=== PATIENT | female | born 1960 | race Caucasian/White ===

== ENCOUNTER 2023-08-29 10:23 | Outpatient (OUT) | payer OTHER, SELFPAY ==
--- NOTE | 2023-08-29 10:26 | MM_ITS ---
Patient Name BEV LOWERY MR# Age Sex Date Time [id number] F 08/29/2023 10:30 At the Request Of DR Myrtle Calloway M.D. RADIOLOGY REPORT PROCEDURE: MM TOMOSYNTHESIS SCREENING BI COMPARISON: MG MAMM SCREEN 3D CHEN CAD, 08/23/2022. MG MAMM SCREEN 3D CHEN CAD, 07/20/2021. MG MAMM SCREEN CHEN W CAD, 05/26/2020. MG MAMM CHEN SCRN W CAD DIG, 10/07/2013. INDICATIONS: Screening Calculator Name NCI Breast Cancer Risk Assessment Tool 5 Year Breast Cancer Risk 1.00% Lifetime Breast Cancer Risk 4.70% Personal Breast Cancer No Personal Ovarian Cancer No Treatments None Family Cancers Mother with lung cancer at age 48. LOCATION: [facility] BREAST COMPOSITION: Scattered areas fibroglandular density. FINDINGS: DIAGNOSTIC CATEGORY 1--NEGATIVE. RIGHT BREAST: No significant suspicious finding. No significant change has occurred. LEFT BREAST: No significant suspicious finding. No significant change has occurred. RECOMMENDATIONS: ROUTINE MAMMOGRAM AND CLINICAL EVALUATION IN 12 MONTHS. PLEASE NOTE: A NORMAL MAMMOGRAM DOES NOT EXCLUDE THE POSSIBILITY OF BREAST CANCER. A CLINICALLY SUSPICIOUS PALPABLE LUMP SHOULD BE BIOPSIED. Dictated by: Tremaine Wick M.D. on 08/29/2023 at 13:14 Approved by: Tremaine Wick M.D. on 08/29/2023 at 13:20
--- OUTSIDE RECORDS SUMMARY | 2023-10-09 13:41 | XMS_ITS | CCD ---
Author Name Unknown Address [facility] [address] [place] [address] Organization [facility] Care Team Providers Care Electronic Operator Name Role Phone EDU, DR EPEWEE Kirk Primary Care Unavailable WEST, DR ALLA Taylor Consulting Unavailable SORENSEN, DR PEEWEE Kirk Admitting Unavailable SORENSEN, DR PEEWEE Kirk Attending Unavailable SORENSEN, DR PEEWEE Kirk Consulting Unavailable SORENSEN, DR PEEWEE Kirk Primary Care Unavailable SORENSEN, DR PEEWEE Kirk Admitting Unavailable SORENSEN, DR PEEWEE Kirk Attending Unavailable SORENSEN, DR PEEWEE Kirk Consulting Unavailable SORENSEN, DR PEEWEE Kirk Primary Care Unavailable SORENSEN, DR PEEWEE Kirk Admitting Unavailable SORENSEN, DR PEEWEE Kirk Attending Unavailable SORENSEN, DR PEEWEE Kirk Consulting Unavailable SORENSEN, DR PEEWEE Kirk Primary Care Unavailable CHRISTINA DAILY Admitting Unavailable CHRISTINA DAILY Attending Unavailable CHRISTINA DAILY Consulting Unavailable Problems Problem Classification Problem Date Documented Da te Episodic/Chronic Other and unspecified benign neoplasm (4 sources) Benign neoplasm of pituitary gland; Translations: [BENIGN NEOPLASM OF PITUITARY GLAND] Onset: 08-10-2022 Episodic Other screening for suspected conditions (not mental disorders or infectious disease) (8 sources) Encounter for screening mammogram for malignant neoplasm of breast; Translations: [Encounter for screening for diabetes mellitus] Onset: 01-11-2022 Episodic Residual codes; unclassified (1 source) Family history of malignant neoplasm of trachea, bronchus and lung; Translations: [FAM HX MALIG NEOPLSM TRACH BRON LNG] Onset: 08-28-2022 Episodic Thyroid disorders (2 sources) Hypothyroidism, unspecified; Translations: [Autoimmune thyroiditis] Onset: 06-09-2022 Chronic Results Test Name Value Interpretation Reference Range Facil ity MG MAMM SCREEN 3D CHEN CADon 08-23-2022 MG MAMM SCREEN 3D CHEN CAD Patient: BEV LOWERY. Exam Date: 08/23/2022 : 1960 Gender:F Ordering : DR PEEWEE SORENSEN M.D. Admission #: [id number] Family : Order #: [id number] CLICK HERE TO VIEW EXAM RADIOLOGY REPORT PROCEDURE: MAMMOGRAM SCREENING 3D BILATERAL CAD COMPARISON: MG MAMM SCREEN CHEN W CAD, 05/26/2020. MG MAMM SCREEN 3D CHEN CAD, 07/20/2021. INDICATIONS: Screening mammography Calculator Name NCI Breast Cancer Risk Assessment Tool 5 Year Breast Cancer Risk 0.90% Lifetime Breast Cancer Risk 4.90% Personal Breast Cancer No Personal Ovarian Cancer No Treatments None Family Cancers Mother with lung cancer at age 48. LOCATION: [facility] BREAST COMPOSITION: Scattered areas fibroglandular density. FINDINGS: DIAGNOSTIC CATEGORY 1--NEGATIVE. NO CHANGE FROM COMPARISON ASSESSMENT. Scattered benign-appearing nodules are present. Scattered benign-appearing calcifications are present. Scattered benign-appearing lymph nodes are present. RIGHT BREAST: No significant suspicious finding. LEFT BREAST: No significant suspicious finding. RECOMMENDATIONS: ROUTINE MAMMOGRAM AND CLINICAL EVALUATION IN 12 MONTHS. PLEASE NOTE: A NORMAL MAMMOGRAM DOES NOT EXCLUDE THE POSSIBILITY OF BREAST CANCER. A CLINICALLY SUSPICIOUS PALPABLE LUMP SHOULD BE BIOPSIED. Dictated by: Alla Kearns MD on 08/23/2022 at 13:07 Approved by: Alla Kearns MD on 08/23/2022 at 13:09 Normal [facility] l OIOLQLF-ESAD-UMJYQF-FACTOR 1 on 08-12-2022 Insulin-Like Growth Factor I 173 ng/mL Normal 60-207 [facility] Comment on above: Performed By: #### I NSGF1 #### [facility] [address] [address] [address] Mago Espinosa ACTH, PLASMAon 08-11-2022 ACTH, Plasma 60.8 pg/mL Normal 7.2-63.3 [facility] Comment on above: Result Comment: ACTH reference interval for samples collected between 7 and 10 AM. Performed By: #### A CTHP #### [facility] [address] [address] [address] Mago Espinosa CORTISOLon 08-11-2022 Cortisol 21.2 ug/dL Normal [facility] Comment on above: Result Comment: Keegan isol AM 6.2 - 19.4 Cortisol PM 2.3 - 11.9 Performed By: #### C ORTISO #### [facility] [address] [address] [address] Mago Espinosa PROLACTINon 08-11-2022 Prolactin 21.3 ng/mL Normal 4.8-23.3 [facility] Comment on above: Performed By: #### P ROLAC #### [facility] [address] [address] [address] Mago Espinosa PROF CHEM 8 (BAS METB)on Anion gap [Moles/Vol] 13.3 mmol/L Normal [facility] Comment on above: Performed By: #### B MP #### [facility] [address] [address] [address] Mago Espinosa Calcium [Mass/Vol] 8.9 mg/dL Normal 8.5-10.1 [facility] Comment on above: Performed By: #### B MP #### [facility] [address] [address] [address] Mago Espinosa Chloride [Moles/Vol] 104 mmol/L Normal 98-107 [facility] Comment on above: Performed By: #### B MP #### [facility] [address] [address] [address] Mago Espinosa CO2 [Moles/Vol] 27.5 mmol/L Normal 21.0-32.0 [facility] Comment on above: Performed By: #### B MP #### [facility] [address] [address] [address] Mago Espinosa Creatinine [Mass/Vol] 0.92 mg/dL Normal 0.55-1.02 [facility] Comment on above: Performed By: #### B MP #### [facility] [address] [address] [address] Mago Espinosa EGFR-AF EAST [place] >60 Normal >=60 [facility] Comment on above: Performed By: #### B MP #### [facility] [address] [address] [address] Mago Espinosa EGFR-NON AF [place] >60 Normal >=60 [facility] Comment on above: Performed By: #### B MP #### [facility] [address] [address] [address] Mago Espinosa Glucose [Mass/Vol] 107 mg/dL Critically high 74-106 T [facility] Comment on above: Performed By: #### B MP #### [facility] [address] [address] [address] Mago Espinoas Potassium [Moles/Vol] 3.8 mmol/L Normal 3.5-5.1 [facility] Comment on above: Performed By: #### B MP #### [facility] [address] [address] [address] Mago Espinosa Sodium [Moles/Vol] 141 mmol/L Normal 136-145 [facility] Comment on above: Performed By: #### B MP #### [facility] [address] [address] [address] Mago Espinosa Urea nitrogen [Mass/Vol] 9.0 mg/dL Normal 7.0-18.0 [facility] Comment on above: Performed By: #### B MP #### [facility] [address] [address] [address] Mago Espinosa Urea nitrogen/Creatinine [Mass ratio] 9.8 mg/mg Normal [facility] Comment on above: Performed By: #### B MP #### [facility] [address] [address] [address] Mago Espinosa FREE T4on 06-08-2022 Free T4 [Mass/Vol] 1.23 ng/dL Normal 0.76-1.46 [facility] Comment on above: Performed By: #### F T4 #### [facility] [address] [address] [address] Mago Espinosa LIPID PROFILEon 06-08-2022 CHOL-HDL RATIO NORM SEE BELOW Normal [facility] Comment on above: Result Comment: 3.3 - 4.4 LOW RISK 4.4 - 7.1 AVERAGE RISK 7.1 - 11.0 MODERATE RISK >11.0 HIGH RISK Performed By: #### C MP, LIPID, TSH #### [facility] [address] [address] [address] Mago Espinosa Cholesterol [Mass/Vol] 187 mg/dL Normal <=200 Th [facility] Comment on above: Performed By: #### C MP, LIPID, TSH #### [facility] [address] [address] [address] Mago Espinosa Cholesterol in HDL [Mass/Vol] 43 mg/dL Normal 40-60 [facility] Comment on above: Performed By: #### C MP, LIPID, TSH #### [facility] [address] [address] [address] Mago Espinosa Cholesterol in LDL [Mass/Vol] 112.4 mg/dL Normal [facility] Comment on above: Performed By: #### C MP, LIPID, TSH #### [facility] [address] [address] [address] Mago Espinosa Cholesterol.total/Cholestero l in HDL [Mass ratio] 4.3 {ratio} Normal [facility] Comment on above: Performed By: #### C MP, LIPID, TSH #### [facility] [address] [address] [address] Mago Espinosa HDL NORMAL > or = 60 mg/dl - LO W CARDIOVASCULAR RISK <40 mg/dl - HIGH CARDIOVASCULAR RISK Normal [facility] Comment on above: Performed By: #### C MP, LIPID, TSH #### [facility] [address] [address] [address] Mago Espinosa LDL CALC NORMAL SEE BELOW Normal [facility] Comment on above: Result Comment: <100 mg/dl OPTIMAL 100 - 129 mg/dl NEAR OR ABOVE OPTIMAL 130 - 159 mg/dl BORDERLINE HIGH 160 - 189 mg/dl HIGH >190 mg/dl VERY HIGH Performed By: #### C MP, LIPID, TSH #### [facility] [address] [address] [address] Mago Espinosa Triglyceride [Mass/Vol] 158 mg/dL Critically high <=150 [facility] Comment on above: Performed By: #### C MP, LIPID, TSH #### [facility] [address] [address] [address] Mago Espinosa VLDL CALC 31.6 mg/dL Normal [facility] Comment on above: Performed By: #### C MP, LIPID, TSH #### [facility] [address] [address] [address] Mago Espinosa PROF 14(COMP METB)on 022 Albumin [Mass/Vol] 3.7 g/dL Normal 3.4-5.0 [facility] Comment on above: Performed By: #### C MP, LIPID, TSH #### [facility] [address] [address] [address] Mago Espinosa Albumin/Globulin [Mass ratio] 1.1 {ratio} Normal [facility] Comment on above: Performed By: #### C MP, LIPID, TSH #### [facility] [address] [address] [address] Mago Espinosa ALP [Catalytic activity/Vol] 58 U/L Normal 46-116 [facility] Comment on above: Performed By: #### C MP, LIPID, TSH #### [facility] [address] [address] [address] Mago Espinosa ALT [Catalytic activity/Vol] 22 U/L Normal 14-59 [facility] Comment on above: Performed By: #### C MP, LIPID, TSH #### [facility] [address] [address] [address] Mago Espinosa Anion gap [Moles/Vol] 14.2 mmol/L Normal [facility] Comment on above: Performed By: #### C MP, LIPID, TSH #### [facility] [address] [address] [address] Mago Espinosa AST [Catalytic activity/Vol] 11 U/L Critically low 15- 37 [facility] Comment on above: Performed By: #### C MP, LIPID, TSH #### [facility] [address] [place] [address] Dr. Mago Espinosa Bilirubin [Mass/Vol] 0.5 mg/dL Normal 0.2-1.0 [facility] Comment on above: Performed By: #### C MP, LIPID, TSH #### [facility] [address] [place] [address] Dr. Mago Espinosa Calcium [Mass/Vol] 8.8 mg/dL Normal 8.5-10.1 [facility] Comment on above: Performed By: #### C MP, LIPID, TSH #### [facility] [address] [address] [address] Mago Espinosa Chloride [Moles/Vol] 104 mmol/L Normal 98-107 [facility] Comment on above: Performed By: #### C MP, LIPID, TSH #### [facility] [address] [address] [address] Mago Espinosa CO2 [Moles/Vol] 25.3 mmol/L Normal 21.0-32.0 [facility] Comment on above: Performed By: #### C MP, LIPID, TSH #### [facility] [address] [address] [address] Mago Espinosa Creatinine [Mass/Vol] 1.01 mg/dL Normal 0.55-1.02 [facility] Comment on above: Performed By: #### C MP, LIPID, TSH #### [facility] [address] [address] [address] Mago Espinosa EGFR-AF [place] >60 Normal >=60 [facility] Comment on above: Performed By: #### C MP, LIPID, TSH #### [facility] [address] [address] [address] Mago Espinosa EGFR-NON AF [place] 56 mL/min/1.73m2 Critically low >=60 [facility] Comment on above: Performed By: #### C MP, LIPID, TSH #### [facility] [address] [address] [address] Mago Espinosa Globulin (S) [Mass/Vol] 3.5 g/dL Normal [facility] Comment on above: Performed By: #### C MP, LIPID, TSH #### [facility] [address] [address] [address] Mago Espinosa Glucose [Mass/Vol] 104 mg/dL Normal 74-106 [facility] Comment on above: Performed By: #### C MP, LIPID, TSH #### [facility] [address] [address] [address] Mago Espinosa Potassium [Moles/Vol] 3.5 mmol/L Normal 3.5-5.1 [facility] Comment on above: Performed By: #### C MP, LIPID, TSH #### [facility] [address] [address] [address] Mago Espinosa Protein [Mass/Vol] 7.2 g/dL Normal 6.4-8.2 [facility] Comment on above: Performed By: #### C MP, LIPID, TSH #### [facility] [address] [address] [address] Mago Espinosa Sodium [Moles/Vol] 140 mmol/L Normal 136-145 [facility] Comment on above: Performed By: #### C MP, LIPID, TSH #### [facility] [address] [address] [address] Mago Espinosa Urea nitrogen [Mass/Vol] 11.0 mg/dL Normal 7.0-18.0 [facility] Comment on above: Performed By: #### C MP, LIPID, TSH #### [facility] [address] [address] [address] Mago Espinosa Urea nitrogen/Creatinine [Mass ratio] 10.9 mg/mg Normal [facility] Comment on above: Performed By: #### C MP, LIPID, TSH #### [facility] [address] [address] [address] Mago Espinosa TSHon 06-08-2022 TSH 7.183 uIU/mL Critically high 0.358-3.740 [facility] Comment on above: Performed By: #### C MP, LIPID, TSH ####[facility] [id number] [address]Dr[address] Mago Espinosa PAP ACOG PANEL 2: 30 to 65on 01-17-2022 . . Normal [facility] Comment on above: Result Comment: Perf ormed at: WB Performed By: #### [id number] #### [facility] [address] [address] [address] Mago Espinosa Age Gdln ACOG Testing 30-65 Normal [facility] Comment on above: Performed By: #### [id number] #### [facility] [address] [place] [address] Dr. Mago Espinosa DIAGNOSIS: Comment Normal [facility] Comment on above: Result Comment: NEGA TIVE FOR INTRAEPITHELIAL LESION OR MALIGNANCY. Performed at: WB Performed By: #### 4 [id number] #### [facility] [address] [address] [address] Mago Espinosa HPV Aptima Negative Normal Negative [facility] Comment on above: Result Comment: This nucleic acid amplification test detects fourteen high-risk HPV types (16,18,31,33,35,39,45,51,52,56,58,59,66,68) without differentiation. Performed at: =G Performed By: #### [id number] #### [facility] [address] [place] [address] Dr. Mago Espinosa Methodology: Comment Normal [facility] Comment on above: Result Comment: This liquid based ThinPrep(R) pap test was screened with the use of an image guided system. Performed at: WB Performed By: #### 4 [id number] #### [facility] [address] [place] [address] Dr. Mago Espinosa Note: Comment Normal [facility] Comment on above: Result Comment: The Pap smear is a screening test designed to aid in the detection of premalignant and malignant conditions of the uterine cervix. It is not a diagnostic procedure and should not be used as the sole means of detecting cervical cancer. Both false-positive and false-negative reports do occur. . Performed at: WB Performed By: #### 4 [id number] #### [facility] [address] [address] [address] Mago Espinosa Performed by: Comment Normal [facility] Comment on above: Result Comment: Tiana Neal, [employer] Draftsperson Performed at: WB Performed By: #### 4 [id number] #### [facility] [address] [address] [address] Mago Espinosa Specimen adequacy: Comment Normal [facility] Comment on above: Result Comment: Sati sfactory for evaluation. No endocervical component is identified. Performed at: WB Performed By: #### 4 [id number] #### [facility] [address] [place] [address] Dr. Mago Espinosa Postoperative Documentson Postoperative Documents [id number]:127 Normal [facility] Coding Summary.on 12-02-2020 Coding Summary. CODING DATE: 021 FINAL [facility] STATUS: Home (Routine DC) PAYOR: [employer] APC DESCRIPTION 5572 Level 2 Imaging with Contrast ADMIT DX: REASON FOR VISIT DX: H93.11 Tinnitus, right ear FINAL DX: PRINCIPAL: H93.11 Tinnitus, right ear SECONDARY: PYMT PROC APC STAT DESCRIPTION DOCTOR NAME DATE Anesthesia for Dylan Thao Jr., DO 11/30/2020 non-invasive imaging or radiation therapy NOTE: The code number assigned matches the documented diagnosis and / or procedure in the patient's chart. However, the narrative phrase printed from the coding software may appear abbreviated, or result in slightly different terminology. Coded By: Cristina Pennington Date Saved: 12/02/2020 12:11 pm Normal [facility] Consent for Anesthesiaon Consent for Anesthesia [id number]:127 [facility] Discharge Instructionson Discharge Instructions [id number]:127 [facility] Preoperative Documentson Preoperative Documents [id number]:127 [facility] Preoperative Documents [id number]:127 [facility] Consent for Treatmenton Consent for Treatment [id number]:127 Normal [facility] MRI Brain w/ + w/o Contrasto n 11-30-2020 MRI Brain w/ + w/o Contrast Exam Date/Time: 11/30/2020 10:46 EST Reason for Exam: Tinnitus, right ear Report IMPRESSION: NEGATIVE MRI OF THE BRAIN. 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 CLINICAL HISTORY: Tinnitus, right ear COMMENT: Unenhanced and intravenous contrast enhanced images were obtained. The ventricles and basal cisterns and cortical sulci appear normal. There is no mass effect nor midline shift. No abnormal signal intensity within the brain is noted. No abnormal contrast enhancement within the brain is noted. There is no evidence of recent infarction on the diffusion weighted images. No intra-axial mass lesion is evident. Within the pituitary gland on the left, there is an ovoid mass, that measures 5 x 6 x 7 mm. This mass is of intermediate signal intensity on unenhanced T1-weighted images and predominantly of increased signal intensity on T2-weighted and FLAIR images. On the postcontrast enhanced images, this mass does not enhance to the same degree as normal pituitary tissue, and is lower in signal intensity. This mass protrudes superiorly into the suprasellar cistern to the left of midline. This mass does not impinge on the pituitary infundibulum or the optic chiasm. The remainder of the pituitary gland is normal in size and normal in appearance. The internal auditory canals and the cochlear and vestibular canals are symmetric. No abnormal signal intensity, no abnormal contrast enhancement, nor mass lesion is seen involving the internal auditory canals or the cerebellopontine angle cisterns. There is minimal increased signal intensity within the right mastoid centrally, otherwise the mastoids are unremarkable. There is mild mucosal thickening of the ethmoid sinuses. FINAL REPORT Dictated: 11/30/2020 12:17 pm Peter Dumont M.D. Signed (Electronic Signature): 11/30/2020 12:17 pm Signed by: Peter Dumont M.D. Transcribed by: CAYETANO Technologist: RAYA Technical Comments MultiHance Contrast amount in ml's: 13 Normal [facility] Main OR PACU I [facility] Main OR PACU I Record PACU Phase I Docum ent Type FT Summary Primary Physician: NONE, XXXX Finalized Date/Time: 11/30/20 11:57:31 Pt. Name: BEV LOWERY Richy Rand/Sex: 1960 Female Med Rec #: [id number] Physician: Bhakti Dougherty MD Financial #: [id number] Pt. Type: A Room/Bed: [address] [address] Admit/Disch: 11/30/20 07:14:36 - Institution: Case Times PACU I FT Pre-Care Text: Identifies barriers to communication and implements measures to provide psychological support Develops individualized plan of care, and ensures continuity of care Maintains patient's dignity and privacy, and maintains patient confidentiality Identifies and reports philosophical, cultural, and spiritual beliefs and values Identifies individual values and wishes concerning care Implements aseptic technique, and administers prescribed antibiotic therapy and immunizing agents as ordered Evaluates postoperative tissue perfusion Implements thermoregulation measures, and monitors body temperature Evaluates postoperative respiratory status Evaluates postoperative cardiac status Evaluates postoperative neurological status Assesses pain control, collaborated in initiating patient-controlled analgesia and implements alternative methods of pain control Verifies allergies, administers prescribed medications and solutions, evaluates response to medications Entry 1 In PACU I 11/30/20 10:44:00 Discharge from PACU 11/30/20 11:14:00 I Outcomes Met? Yes Last Modified By: Luis LEMONS, Paz Montague 11/30/20 11:57:18 Post-Care Text: The patient demonstrates knowledge of the expected response to the operative or invasive procedure The patient's care is consistent with the individualized perioperative plan of care The patient's right to privacy is maintained The patient's value system, lifestyle, ethnicity, and culture are considered, respected, and incorporated into the perioperative plan of care The patient participates in decisions affecting his or her perioperative plan of care The patient is free from signs and symptoms of infection The patient has wound/tissue perfusion consistent with or improved from baseline levels established preoperatively The patient is at or returning to normothermia at the conclusion of the immediate postoperative period The patient's respiratory function is consistent with or improved from baseline levels established preoperatively The patient's cardiovascular status is consistent with or improved from baseline levels established preoperatively The patient's cardiovascular status is consistent with or improved from baseline levels established preoperatively The patient demonstrates and/or reports adequate pain control throughout the perioperative period The patient received appropriate medication(s), safely administered during the perioperative period Acuity Level PACU I FT Entry 1 Start Time 11/30/20 10:44:00 Stop Time 11/30/20 11:14:00 Acuity Level Acuity Level I Last Modified By: Paz Smith RN 11/30/20 11:57:26 Finalized By: Paz Smith RN Document Signatures Signed By: Paz Smith RN 11/30/20 11:57 Normal [facility] Main OR PACU II [facility] Main OR PACU II Record PACU Phase II Document Type FT Summary Primary Physician: NORMA, XXXX Finalized Date/Time: 11/30/20 12:55:46 Pt. Name: BEVERLEYBEV/Sex: 1960 Female Med Rec #: [id number] Physician: Bhakti Dougherty MD Financial #: [id number] Pt. Type: A Room/Bed: [facility] Admit/Disch: 11/30/20 07:14:36 - Institution: Case Times PACU II FT Pre-Care Text: Identifies barriers to communication and implements measures to provide psychological support and determines knowledge level Develops individualized plan of care, and ensures continuity of care Maintains patient's dignity and privacy, and maintains patient confidentiality Identifies and reports philosophical, cultural, and spiritual beliefs and values Identifies individual values and wishes concerning care administers prescribed antibiotic therapy and immunizing agents as ordered, Evaluates postoperative tissue perfusion Implements thermoregulation measures, and monitors body temperature Evaluates postoperative respiratory status Evaluates postoperative cardiac status Evaluates postoperative neurological status Assesses pain control, collaborated in initiating patient-controlled analgesia and implements alternative methods of pain control Verifies allergies, administers prescribed medications and solutions, evaluates response to medications Entry 1 In PACU II 11/30/20 11:15:00 Discharge from PACU 11/30/20 12:15:00 II Outcomes Met? Yes Last Modified By: Kaela Kraus RN 11/30/20 12:55:44 Post-Care Text: The patient demonstrates knowledge of the expected response to the operative or invasive procedure The patient's care is consistent with the individualized perioperative plan of care The patient's right to privacy is maintained The patient's value system, lifestyle, ethnicity, and culture are considered, respected, and incorporated into the perioperative plan of care The patient participates in decisions affecting his or her perioperative plan of care. The patient is free from signs and symptoms of infection The patient has wound/tissue perfusion consistent with or improved from baseline levels established preoperatively The patient is at or returning to normothermia at the conclusion of the immediate postoperative period The patient's respiratory function is consistent with or improved from baseline levels established preoperatively The patient's cardiovascular status is consistent with or improved from baseline levels established preoperatively The patient's neurological status is consistent with or improved from baseline levels established preoperatively The patient demonstrates and/or reports adequate pain control throughout the perioperative period The patient received appropriate medication(s), safely administered during the perioperative period Finalized By: Kaela Kraus RN Document Signatures Signed By: Kaela Kraus RN 11/30/20 12:55 Normal [facility] Monitor Recordon 11-30-2020 Monitor Record [id number]:127 Normal [facility] Progress Note-Nurseon 2020 Progress Note-Nurse 0938 Patient transpo rted via cart all rails up to MRI by VESTA Crowe and MILLA Oneil. 0940 Arrival to MRI area. VESTA Crowe 0942 Patient ambulated to MRI room with standby assist x 2. Patient positioned self in supine position. Bilateral arms resting at sides; knee/leg cushion placed under bilateral knee and lower leg area. VESTA Crowe 0943 HR 67 SpO2 100% on room air BP 101/71 RR 16. VESTA Crowe 0948 Start of MRI. VESTA Crowe 0952 HR 68 SpO2 99% -4L via NC RR 18. P BP 92/64 Patient tolerating MRI well with no signs of distress. Will continue to monitor. VESTA Crowe 1000 BP 91/67 HR 69 SpO2 100%- 4L via NC. RR 20 Patient tolerating well - will continue to monitor. VESTA Crowe 1010 BP 99/68 HR 67 SpO2 100% - 4L via NC RR 18 RR 18- patient tolerating well - will continue to monitor. VESTA Crowe 1020 BP 90/68 HR 68 SpO2 100% - 4L via NC RR 16 - patient tolerating well - no sign of distress - will continue to monitor. VESTA Crowe 1030 BP 92/69 HR 73 SpO2 100% - 4L via NC RR 16. Patient tolerating well. Will continue to monitor. VESTA Crowe 1034 BP 102/67 HR 67 SpO2 100% - 4L via NC RR 19 - Patient tolerating well. Will continue to monitor. VESTA Crowe 1035 End of MRI. VESTA Crowe 1037 Patient ambulated to cart with standby assist x 2. VESTA Crowe 1040 Patient out of MRI and transported to PACU via cart all rails up on O2-4L via NC by VESTA Crowe and MILLA Oneil. Report given to PACU nurse. VESTA Crowe Normal [facility] Progress Note-Nurse Pt ambulatory to ASU to begin prep for MRI with sedation. Pt is alert and oriented 4, but anxious. Vital signs and assessment are WNL. IV start in right lower forearm 22G. Pt tolerated well. Pre and post MRI procedure explained to patient. Pt verbalizes understanding. Pt has no current needs, questions or concerns at this time. Normal [facility] Progress Note-Physicianon Progress Note-Physician Patient: BEV LOWERY Age: 60 years Sex: Female : 1960 Associated Diagnoses: None Author: Dylan Thao Jr., DO Postoperative Information Post Operative Note: Post Anesthesia Care Unit. Anesthetic utilized: Monitored anesthesia care. Health Status Allergies: Allergic Reactions (Selected) No Known Allergies Problem list: All Problems Ringing in right ear / SNOMED CT 372185343 / Confirmed Abnormal exam of right ear / SNOMED CT 8942651237 / Confirmed Hypothyroid / SNOMED CT 86819784 / Confirmed Resolved: Anxiety / SNOMED CT 84171011 Physical Examination Vital Signs 11/30/2020 11:17 EST Heart Rate Monitored 67 bpm Respiratory Rate 16 br/min Systolic Blood Pressure 127 mmHg Diastolic Blood Pressure 82 mmHg Blood Pressure Location Left arm Mean Arterial Pressure, Monitered 97 mmHg SpO2 100 % 11/30/2020 11:17 EST Temperature Oral 36.5 DegC 11/30/2020 10:44 EST Temperature Temporal Artery 36.8 DegC Heart Rate Monitored 69 bpm Respiratory Rate Monitored 22 br/min Systolic Blood Pressure 125 mmHg Diastolic Blood Pressure 72 mmHg Blood Pressure Location Left arm SpO2 100 % Pain assessment: Pain Assessment 11/30/2020 11:17 EST Preliminary Pain Scale 0 11/30/2020 11:17 EST Pain Symptoms Self Report No, able to self report . General: Alert and oriented, No acute distress, No nausea. Hydration adequate.. Respiratory: Adequate air exchange.. Neurologic: Normal sensory. Review / Management Condition: Stable. Assessment Anesthetic outcome No anesthetic complications noted. Plan Transfer/ Discharge: Condition stable. Normal [facility] Comment on above: Result Comment: Elec tronically Signed By: Dylan Thao Jr., DO\.br\Date and Time Signed: 11/30/20 12:05 EST Progress Note-Physician Patient: BEV LOWERY Age: 60 years Sex: Female : 1960 Associated Diagnoses: None Author: Ten Swanson CRNA Preoperative Information Note started preop and saved 924 Review of Systems Constitutional: Negative. Eye: Negative. Ear/Nose/Mouth/Throat: Negative except as documented in history of present illness. Cardiovascular: Negative. Genitourinary: Negative. Respiratory: Negative. Hematology/Lymphatics: Negative. Gastrointestinal: Negative. Endocrine: Negative. Immunologic: Negative. Integumentary: Negative. Musculoskeletal: Negative. Neurologic: Negative. Psychiatric: Anxiety. Health Status Allergies: Allergic Reactions (Selected) No Known Allergies, Allergies (1) Active Reaction No Known Allergies None Documented Current medications: (Selected) Inpatient Medications Ordered Lactated Ringers IV Ashley 1000 mL 1,000 mL: 1,000 mL, IV, 150 mL/hr, Routine, Start date 11/30/20 7:00:00 EST, 6.7 hour(s), Total volume (mL): 1,000, 67.5 kg, 1.76, m2 Documented Medications Documented Multi Vitamin+: 1 tab, Oral, Daily, chew, Prophylaxis Prempro 0.3 mg-1.5 mg oral tablet: 1 tab(s), Oral, Daily, Refill(s) 0, Menopause Synthroid 100 mcg Tab: 100 mcg = 1 tab(s), Oral, Daily, Refills(s) 0, Thyroid alprazolam 0.25 mg Tab: 0.25 mg = 1 tab(s), Oral, Daily, PRN as needed for anxiety, Refills(s) 0, Home Medications (4) Active alprazolam 0.25 mg Tab 0.25 mg = 1 tab(s), PRN, Oral, Daily Multi Vitamin+ 1 tab, Oral, Daily Prempro 0.3 mg-1.5 mg oral tablet 1 tab(s), Oral, Daily Synthroid 100 mcg Tab 100 mcg = 1 tab(s), Oral, Daily Problem list: All Problems Abnormal exam of right ear / SNOMED CT 7217118829 / Confirmed Hypothyroid / SNOMED CT 11801270 / Confirmed Ringing in right ear / SNOMED CT 579709169 / Confirmed, Active Problems (3) Abnormal exam of right ear Hypothyroid Ringing in right ear Histories Past Medical History: No active or resolved past medical history items have been selected or recorded. Family History: No family history items have been selected or recorded. Procedure history: Bilateral tubal ligation ([id number]). Social History Social & Psychosocial Habits Alcohol 11/24/2020 Use: Current Type: Beer Frequency: Daily Comment: 1 beer a day - 11/24/2020 07:38 - Billy LEMONS, Emma Substance Abuse 11/24/2020 Risk Assessment: Denies Substance Abuse Tobacco 11/24/2020 Risk Assessment: Denies Tobacco Use 11/24/2020 Tobacco Use: Former smoker, quit more Type: Cigarettes Stopped at age: 31 Years Previous treatment: None . Physical Examination Vital Signs 11/30/2020 7:34 EST Heart Rate Monitored 107 bpm HI Systolic Blood Pressure 123 mmHg Diastolic Blood Pressure 80 mmHg Blood Pressure Location Right arm Mean Arterial Pressure, Monitered 95 mmHg SpO2 98 % 11/30/2020 7:32 EST Temperature Oral 36.4 DegC Heart Rate Monitored 103 bpm HI Respiratory Rate 16 br/min Systolic Blood Pressure 132 mmHg Diastolic Blood Pressure 85 mmHg Blood Pressure Location Left arm Mean Arterial Pressure, Monitered 101 mmHg SpO2 99 % 11/30/2020 7:32 EST Apical Heart Rate 100 bpm Measurements from flowsheet : Measurements 11/30/2020 7:18 EST Height/Length Dosing 165.0 cm Weight Dosing 67.5 kg Pain assessment: Pain Assessment 11/30/2020 7:32 EST Preliminary Pain Scale 0 . Airway: Normal temporomandibular joint mobility. Mallampati classification: I (soft palate, fauces, uvula, pillars visible). Respiratory: Lungs are clear to auscultation. Cardiovascular: Regular rhythm. Review / Management Results review: No qualifying data available . Plan [place] [employer]esthesiologists (ASA) physical status classification: Class II. Anesthetic Preoperative Plan Anesthesia: Monitored anesthesia care. Anesthetic plan, risks, benefits, and alternatives discussed with the patient and/or family. Normal [facility] Comment on above: Result Comment: Elec tronically Signed By: Ten Swanson CRNA.br\Date and Time Signed: 11/30/20 11:43 EST Progress Note-Physician Patient: BEV LOWERY Age: 60 years Sex: Female : 1960 Associated Diagnoses: None Author: Dylan Thao Jr., DO Preoperative Information Time patient last ate or drank:=== (NPO since midnight) Anesthesia history: Patient History: No prior problems with anesthesia.. Re-eval prior to induction: Inital eval reviewed: No significant interval change, Surgical H&P documented and on chart. Surgical consent signed and on chart.. Anesthesia results Review of Systems Cardiovascular: Negative except as documented in history of present illness. Respiratory: Negative. Neurologic: Negative. Health Status Allergies: Allergic Reactions (Selected) No Known Allergies, Allergies (1) Active Reaction No Known Allergies None Documented Current medications: (Selected) Inpatient Medications Ordered Lactated Ringers IV Ashley 1000 mL 1,000 mL: 1,000 mL, IV, 150 mL/hr, Routine, Start date 11/30/20 7:00:00 EST, 6.7 hour(s), Total volume (mL): 1,000, 67.5 kg, 1.76, m2 Documented Medications Documented Multi Vitamin+: 1 tab, Oral, Daily, chew, Prophylaxis Prempro 0.3 mg-1.5 mg oral tablet: 1 tab(s), Oral, Daily, Refill(s) 0, Menopause Synthroid 100 mcg Tab: 100 mcg = 1 tab(s), Oral, Daily, Refills(s) 0, Thyroid alprazolam 0.25 mg Tab: 0.25 mg = 1 tab(s), Oral, Daily, PRN as needed for anxiety, Refills(s) 0 Histories Past Medical History: No active or resolved past medical history items have been selected or recorded. Family History: No family history items have been selected or recorded. Procedure history: Bilateral tubal ligation ([id number]). Social History Social & Psychosocial Habits Alcohol 11/24/2020 Use: Current Type: Beer Frequency: Daily Comment: 1 beer a day - 11/24/2020 07:38 - Billy LEMONS, Emma Substance Abuse 11/24/2020 Risk Assessment: Denies Substance Abuse Tobacco 11/24/2020 Risk Assessment: Denies Tobacco Use 11/24/2020 Tobacco Use: Former smoker, quit more Type: Cigarettes Stopped at age: 31 Years Previous treatment: None . Physical Examination Measurements from flowsheet : Measurements 11/30/2020 7:18 EST Height/Length Dosing 165.0 cm Weight Dosing 67.5 kg Airway: Mallampati classification: II (soft palate, fauces, uvula visible). Respiratory: Lungs are clear to auscultation. Cardiovascular: Regular rhythm. Review / Management Results review: Lab results 11/24/2020 8:12 EST SARS-CoV-2, DAVID Not Detected 11/24/2020 7:55 EST WBC 5.7 E9/L RBC 4.6 E12/L Hgb 14.5 gm/dL Hct 42.5 % MCV 92.3 fL MCH 31.5 pg MCHC 34.2 gm/dL RDW 12.5 % Platelet 230.0 E9/L MPV 8.3 fL Glucose Random 113 mg/dL BUN 10 mg/dL Creatinine 0.8 mg/dL eGFR >60 mL/min/1.73 m2 eGFR AA >60 mL/min/1.73 m2 Sodium Lvl 140 mmol/L Potassium Lvl 3.7 mmol/L Chloride 105 mmol/L CO2 27 mmol/L AGAP 12 mEq/L . Chest x-ray results * Final Report * Reason For Exam pre op POWERSCRIBE REPORT IMPRESSION: NO EVIDENCE OF ACTIVE CHEST DISEASE. CLINICAL HISTORY: pre op. COMMENT: The heart is normal in size. The mediastinum is unremarkable. The lungs appear clear. No infiltration nor pleural effusion is evident. Signature Line FINAL REPORT Dictated: 11/24/2020 10:47 am JuliaPeter mascorro M.D. Signed (Electronic Signature): 11/24/2020 10:47 am Signed by: Peter Dumont M.D. Transcribed by: CAYETANO Technologist: CHRISTINE RAD REPORT This document has an image Result type: XR Chest 2 Views Result date: November 24, 2020 8:08 EST Result status: Auth (Verified) Result title: XR Chest 2 Views Performed by: Peter Dumont M.D. on November 24, 2020 10:47 EST Verified by: Peter Dumont M.D. on November 24, 2020 10:47 EST Encounter info: [id number], [facility], Outpatient, 11/24/2020 - 11/24/2020 ECG interpretation: SINUS RHYTHM LOW QRS VOLTAGE IN PRECORDIAL LEADS SEPTAL MYOCARDIAL INFARCTION, OF INDETERMINATE AGE. Plan [place] [employer]esthesiologists (ASA) physical status classification: Class II. Anesthetic Preoperative Plan Anesthesia: General. . Anesthetic plan, risks, benefits, and alternatives discussed with the patient and/or family. Patient verbalized understanding. Adverse reactions, complications, and alternatives discujssed. Consent signed and on chart.. Normal [facility] Comment on above: Result Comment: Elec tronically Signed By: Dylan Thao Jr., DO\.br\Date and Time Signed: 11/30/20 09:46 EST RAD - MRI Screening Formon 0 11-30-2020 RAD - MRI Screening Form [id number]:127 Normal [facility] Coding Summary.on 11-25-2020 Coding Summary. CODING DATE: 021 FINAL [facility] STATUS: Home (Routine DC) PAYOR: Commercial Insurance APC DESCRIPTION 5521 Level 1 Imaging without Contrast ADMIT DX: REASON FOR VISIT DX: Z01.818 Encounter for other preprocedural examination FINAL DX: PRINCIPAL: Z01.818 Encounter for other preprocedural examination SECONDARY: Z20.828 Contact with and (suspected) exposure to other viral communicable diseases PYMT PROC APC STAT DESCRIPTION DOCTOR NAME DATE NOTE: The code number assigned matches the documented diagnosis and / or procedure in the patient's chart. However, the narrative phrase printed from the coding software may appear abbreviated, or result in slightly different terminology. Coded By: Doron BeckfordMissy Date Saved: 11/25/2020 10:30 am Normal [facility] Priority Order-Angelica 2020 Priority Order-STAT Comment Ulises demarco [facility] Comment on above: Result Comment: Elise ived Performed at: [email or web address] [address] [place], [place] [id number] MD Elaine Heath Performed By: #### 2 [id number], SARS-CoV-2, DAVID ####[facility] [address] [place] [address] SARS-CoV-2, NAAon 11-25-2020 SARS CORONAVIRUS 2 RNA:PRTHR:PT:RESPIRATORY:ORD:PROBE.AMP.TAR Not Detected Not D etected [facility] Comment on above: Result Comment: This nucleic acid amplification test was developed and its performance characteristics determined by [facility]. Nucleic acid amplification tests include RT-PCR and TMA. This test has not been FDA cleared or approved. This test has been authorized by FDA under an Emergency Use Authorization (EUA). This test is only authorized for the duration of time the declaration that circumstances exist justifying the authorization of the emergency use of in vitro diagnostic tests for detection of SARS-CoV-2 virus and/or diagnosis of COVID-19 infection under section 564(b)(1) of the Act, 21 U.S.C. 360bbb-3(b) (1), unless the authorization is terminated or revoked sooner. When diagnostic testing is negative, the possibility of a false negative result should be considered in the context of a patient's recent exposures and the presence of clinical signs and symptoms consistent with COVID-19. An individual without symptoms of COVID-19 and who is not shedding SARS-CoV-2 virus would expect to have a negative (not detected) result in this assay. Performed at: [email or web address] [address] [place], [place] [id number] MD Elaine Heath Performed By: #### 2 [id number], SARS-CoV-2, DAVID ####[facility] [address] [place] [address] BUNon 11-24-2020 Urea nitrogen [Mass/Vol] 10 mg/dL Normal 5-21 [facility] Comment on above: Performed By: #### 1 7121385, 0237003, 5980176, 9307040, 7523027, 9220372 ####[facility] [address] [place] [address] CBC w/Indiceson 11-24-2020 Erythrocyte distribution wid th (RBC) [Ratio] 12.5 % Normal 10.9-14.2 [facility] Comment on above: Performed By: #### 1 9364800, 7802390, 0478397, 3419201, 2719278, 9561393 ####[facility] [address] [place] [address] Hematocrit (Bld) [Volume fraction] 42.5 % Normal 34.0-46.0 [facility] Comment on above: Performed By: #### 1 5902174, 7102690, 4851163, 8352537, 8973441, 6495929 ####[facility] [address] [place] [address] Hemoglobin (Bld) [Mass/Vol] 14.5 g/dL Normal 12.0-16. 0 [facility] Comment on above: Performed By: #### 1 1664190, 1948229, 3925359, 4340119, 5552289, 3258742 ####[facility] [address] [place] [address] MCH (RBC) [Entitic mass] 31.5 pg Normal 27.0-34.0 [facility] Comment on above: Performed By: #### 1 4595004, 7666366, 9714255, 9791289, 8132335, 8091429 ####[facility] [address] [place] [address] MCHC (RBC) [Mass/Vol] 34.2 g/dL Normal 31.4-36.0 [facility] Comment on above: Performed By: #### 1 5779905, 5704915, 2622561, 5190327, 8102615, 4826638 ####[address] [place] [address] MCV (RBC) [Entitic vol] 92.3 fL Normal 80.0-100.0 F [facility] Comment on above: Performed By: #### 1 9682000, 3668048, 3203323, 1244114, 2230948, 9007906 ####[address] [place] [address] Platelet mean volume (Bld) [Entitic vol] 8.3 fL Normal 6.4-10.8 [facility] Comment on above: Performed By: #### 1 7315209, 7113931, 5474214, 2583037, 4050825, 4408057 ####[address] [address] Platelets (Bld) [#/Vol] 230.0 E9/L Normal 150.0-500.0 [facility] Comment on above: Performed By: #### 1 8243999, 5092195, 2858891, 4941306, 5571965, 4063641 ####[address] [address] RBC (Bld) [#/Vol] 4.6 E12/L Normal 4.3-5.9 [facility] Comment on above: Performed By: #### 1 3021211, 8676595, 9390414, 2836574, 4940969, 0968050 ####[address] [address] WBC corrected for nucl RBC A uto (Bld) [#/Vol] 5.7 E9/L Normal 4.0-11.0 [facility] Comment on above: Performed By: #### 1 7761812, 4575273, 7170798, 2451434, 5142462, 0081997 ####[address] [place] [address] Consent for Treatmenton Consent for Treatment [id number]:127 Normal [facility] Creatinineon 11-24-2020 Creatinine [Mass/Vol] 0.8 mg/dL Normal 0.5-1.3 [facility] Comment on above: Performed By: #### 1 2145920, 5836164, 7592771, 7943374, 9418591, 2504289 ####[facility] [address] [place] [address] Glucoseon 11-24-2020 Glucose [Mass/Vol] 113 mg/dL Normal 55-199 [facility] Comment on above: Performed By: #### 1 6823794, 4784920, 5759408, 8600585, 8600302, 1358662 ####[facility] [address] [place] [address] Lyteson 11-24-2020 Anion gap [Moles/Vol] 12 mmol/L Normal 6-16 [facility] Comment on above: Performed By: #### 1 2985918, 2038879, 0959500, 7780458, 7532150, 8276627 ####[facility] [address] [address] Chloride [Moles/Vol] 105 mmol/L Normal 101-111 [facility] Comment on above: Performed By: #### 1 2544966, 1499464, 6805707, 6738368, 2647846, 7664472 ####[facility] [address] [place] [address] CO2 [Moles/Vol] 27 mmol/L Normal 21-31 [facility] Comment on above: Performed By: #### 1 9845922, 8357585, 4161102, 0080202, 6814386, 8078461 ####[facility] [address] [address] Potassium [Moles/Vol] 3.7 mmol/L Normal 3.5-5.3 [facility] Comment on above: Performed By: #### 1 9702802, 9047714, 8047012, 5476252, 2633203, 5676149 ####[facility] [address] [place] [address] Sodium [Moles/Vol] 140 mmol/L Normal 135-145 [facility] Comment on above: Performed By: #### 1 1119238, 7711106, 1069464, 4048536, 5777256, 9690333 ####[facility] [address] [place] [address] XR Chest 2 Viewson XR Chest 2 Views Exam Date/Time: 11/24/2020 08:08 EST Reason for Exam: pre op Report IMPRESSION: NO EVIDENCE OF ACTIVE CHEST DISEASE. CLINICAL HISTORY: pre op. COMMENT: The heart is normal in size. The mediastinum is unremarkable. The lungs appear clear. No infiltration nor pleural effusion is evident. FINAL REPORT Dictated: 11/24/2020 10:47 am Peter Dumont M.D. Signed (Electronic Signature): 11/24/2020 10:47 am Signed by: Peter Dumont M.D. Transcribed by: CAYETANO Technologist: Normal [facility] eGFRon 11-24-2020 GFR/1.73 sq M predicted wanda g blacks MDRD (S/P/Bld) [Vol rate/Area] mL/min/{1.73_m2} Normal >=[address] [facility] Comment on above: Order Comment: Order added by Discern Expert. Result Comment: eGFR is race adjusted. AA=. Performed By: #### 1 5480061, 7972637, 6595641, 0641877, 7707723, 8255757 ####[facility] [address] [place] [address] GFR/1.73 sq M predicted wanda g non-blacks MDRD (S/P/Bld) [Vol rate/Area] mL/min/{1.73_m2} Normal >=[address] [facility] Comment on above: Order Comment: Order added by Discern Expert. Result Comment: [employer] sylvia kidney disease could be indicated at eGFR's of less than 60 mL/min/1.73m2. Kidney failure is indicated at less than 15 mL/min/1.73m2. Performed By: #### 1 8259284, 0002596, 1125859, 0480436, 9836447, 0331539 ####[facility] [address] [place] [address] Physician Orderon 11-05-2020 Physician Order [id number]:127 Normal [facility] Encounters Encounter Date Encounter Type Care Provider Facility Start: 08-23-2022 End: 08-24-[address] PEEWEE SORENSEN Facility:[facility] Start: 08-10-2022 End: 08-11-[address] PEEWEE SORENSEN Facility:[facility] Start: 06-09-2022 Encounter for genera l adult medical examination without abnormal findings DR PEEWEE SORENSEN [facility] Start: 06-08-2022 End: 06-09-[address] PEEWEE SORENSEN Facility:[facility] Start: 06-08-2022 End: 06-09-2022 Encounter for general adult medical examination without abnormal findings DR PEEWEE SORENSEN Facility:[facility] Start: 01-11-2022 End: 01-11-[address] PEEWEE SORENSEN Facility:[facility] Payers Date Payer Category Payer Unknown [id number] 2.16.84 [id number] 1960 Unknown [id number] 2.16.84 [id number] 1960 Unknown [id number] 2.16.84 [id number] 1960 Unknown [id number] 2.16.84 [id number] 1958 Private Health Insurance [id number] Private Health Insurance [id number] Summary Purpose Family History No Family History Records FoundNo Family History Records Found Advance Directives No Advanced Directives Records FoundNo Advanced Directives Records Found Additional Source Comments INFORMATION SOURCE (unrecogn ized section and content) DATE CREATED AUTHOR 12/05/2020 [facility] DATE CREATED AUTHOR AUTHOR'S ORGANIZ ATION 09/28/2022 [facility] FOR RECORDS PERTAINING TO PATIENTS WHO ARE OR HAVE BEEN ENROLLED IN A CHEMICAL DEPENDENCY/SUBSTANCEABUSE PROGRAM, SOME INFORMATION MAY BE OMITTED. This clinical summary was aggregated from multiple sources. Caution should be exercised in using it in the provision of clinical care. This summary normalizes information from multiple sources, and as a consequence, information in this document may materially change the coding, format and clinical context of patient data. In addition, data may be omitted in some cases. CLINICAL DECISIONS SHOULD BE BASED ON THE PRIMARY CLINICAL RECORDS. [facility], [facility]. provides no warranty or guarantee of the accuracy or completeness of information in this document.
== END 2023-08-29 10:24 | disposition home or self-care (01) ==
LOC: MAMMO 10:23
PROVIDERS: PCP Family Medicine; Visit Provider Family Medicine
DX: Z12.31 Encounter for screening mammogram for malignant neoplasm of breast (principal); Z80.1 Family history of malignant neoplasm of trachea, bronchus and lung
CPT/HCPCS: 77063; 77067

== ENCOUNTER 2024-03-03 12:25 | Outpatient (OUT) | payer OTHER, SELFPAY ==
[2024-03-03 15:18] LABS: Free T4 1.74 ng/dL (0.76-1.46)
[2024-03-03 15:26] LABS: Thyroid Stimulating Hormone 0.472 uIU/mL (0.358-3.740)
== END 2024-03-03 12:26 | disposition home or self-care (01) ==
LOC: LAB 12:26
PROVIDERS: PCP Family Medicine; Visit Provider Family Medicine
DX: E03.9 Hypothyroidism, unspecified (principal)
CPT/HCPCS: 36415; 84439; 84443

== ENCOUNTER 2024-10-23 16:25 | Outpatient (RCR) | payer BC, OTHER, SELFPAY | END 2024-12-27 07:26 | disposition home or self-care (01) | LOC: PT 16:25 | PROVIDERS: PCP Family Medicine; Visit Provider Family Medicine | DX: M62.838 Other muscle spasm (principal); M54.2 Cervicalgia; M79.601 Pain in right arm | CPT/HCPCS: 20561; 97110; 97140; 97161 ==

== ENCOUNTER 2025-02-11 10:11 | Outpatient (OUT) | payer BC, OTHER, SELFPAY ==
--- NOTE | 2025-02-11 10:17 | MM_ITS ---
Patient Name: BEV LOWERY MR#: [id number] : 1960 Exam Date: 02/11/2025 Ordering Doctor: DR Suresh Benjamin D.O. RADIOLOGY REPORT PROCEDURE: MM TOMOSYNTHESIS SCREENING BI COMPARISON: MM TOMOSYNTHESIS SCREENING BI, 08/29/2023. MG MAMM SCREEN 3D CHEN CAD, 08/23/2022. MG MAMM SCREEN 3D CHEN CAD, 07/20/2021. MG MAMM CHEN SCRN W CAD DIG, 10/07/2013. INDICATIONS: Screening Calculator Name NCI Breast Cancer Risk Assessment Tool 5 Year Breast Cancer Risk 1.00% Lifetime Breast Cancer Risk 4.40% Personal Breast Cancer No Personal Ovarian Cancer No Treatments None Family Cancers Mother with lung cancer at age 48. LOCATION: [facility] BREAST COMPOSITION: There are scattered areas of fibroglandular density. FINDINGS: RIGHT BREAST: No significant suspicious finding. LEFT BREAST: No significant suspicious finding. DIAGNOSTIC CATEGORY 1--NEGATIVE. RECOMMENDATIONS: ROUTINE MAMMOGRAM AND CLINICAL EVALUATION IN 12 MONTHS. PLEASE NOTE: A NORMAL MAMMOGRAM DOES NOT EXCLUDE THE POSSIBILITY OF BREAST CANCER. A CLINICALLY SUSPICIOUS PALPABLE LUMP SHOULD BE BIOPSIED. Dictated by: Ramone Kennedy DO on 02/11/2025 at 11:27 Approved by: Ramone Kennedy DO on 02/11/2025 at 13:02
== END 2025-02-11 10:12 | disposition home or self-care (01) ==
LOC: MAMMO 10:11
PROVIDERS: PCP Family Medicine; Visit Provider Internal Medicine
DX: Z12.31 Encounter for screening mammogram for malignant neoplasm of breast (principal); Z80.1 Family history of malignant neoplasm of trachea, bronchus and lung
CPT/HCPCS: 77063; 77067